=== PATIENT | male | born 2000 | race Asian ===

== ENCOUNTER 2023-09-29 19:41 | Emergency (ER) | payer SELFPAY ==
[~2023-09-29] VITALS: Ht 182.9 cm; Wt 79.5 kg
[2023-09-29 19:47] VITALS: TEMP 98.5
[2023-09-29 23:22] VITALS: BP 113/72; PULSE 85; RESP 18
== END 2023-09-29 23:35 | disposition home or self-care (01) ==
LOC: EMS 19:43
DX: S50.812A Abrasion of left forearm, initial encounter (principal); S09.90XA Unspecified injury of head, initial encounter; J45.909 Unspecified asthma, uncomplicated; F12.90 Cannabis use, unspecified, uncomplicated; V28.01XA Electric (assisted) bicycle driver injured in noncollision transport accident in nontraffic accident, initial encounter; Y93.89 Activity, other specified; Y92.89 Other specified places as the place of occurrence of the external cause; Y99.8 Other external cause status
CPT/HCPCS: 99281; Z7502